=== PATIENT | female | born 1990 | race Asian ===

== ENCOUNTER 2016-08-19 15:39 | Day surgery (SDC) | payer OTHER ==
[~2016-08-19 15:39] MED LIST: LACTATED RINGERS 1,000 ML IV ONE
[2016-08-19] MEDS ORDERED: SCOPOLAMINE PATCH TOP STA (20:03)
[2016-08-19] MEDS ORDERED: GLYCOPYRROLATE 1 MG/5 ML VIAL IVP ONE (21:00)
[2016-08-19] MEDS ORDERED: NEOSTIGMINE 1 MG/1 ML 10 ML MDV IVP ONE (21:00)
[2016-08-19] MEDS ORDERED: fentaNYL 250 MCG/5 ML VIAL IVP ONE (21:00)
[2016-08-19] MEDS ORDERED: ceFAZolin 1 GM VIAL IV ONE (21:00)
[2016-08-19] MEDS ORDERED: BUPIVACAINE 0.25%-EPI 1:200000 PF 30 ML VIAL SUBQ ONE (21:00)
[2016-08-19] MEDS ORDERED: PROPOFOL 200 MG/20 ML VIAL IVP ONE (21:00)
[2016-08-19] MEDS ORDERED: ROCURONIUM 50 MG/5 ML VIAL IVP ONE (21:00)
[2016-08-19] MEDS ORDERED: ONDANSETRON 4 MG/2 ML VIAL IVP ONE (21:00)
[2016-08-19] MEDS ORDERED: SUCCINYLCHOLINE 200 MG/10 ML VIAL IVP ONE (21:00)
[2016-08-19] MEDS ORDERED: LIDOCAINE-MPF 2% 5 ML VIAL IM ONE (21:00)
[2016-08-19] MEDS ORDERED: DEXAMETHASONE 4 MG/ML VIAL IVP ONE (21:00)
[2016-08-19] MEDS ORDERED: MIDAZOLAM 2 MG/2 ML VIAL IVP ONE (21:00)
[2016-08-19] MEDS ORDERED: ACETAMINOPHEN 1,000 MG/100 ML VIAL IV ONE (21:00)
[2016-08-19] MEDS ORDERED: KETOROLAC 30 MG/ML VIAL IVP ONE (21:00)
[2016-08-19] MEDS ORDERED: LACTATED RINGERS 1,000 ML IV ONE (21:14)
[2016-08-19] MEDS ORDERED: MEPERIDINE 50 MG/ML SYRINGE ONE (21:53)
[2016-08-19] MEDS ORDERED: oxyCODONE/ACET 5/325 Prepack 4 PO ONE (22:16)
[2016-08-19] MEDS ORDERED: oxyCODONE/ACET 5/325 Prepack 4 PO STA (22:17)
== END 2016-08-19 19:31 | disposition home or self-care (01) ==
PROC: 0UB54ZZ Excision of Right Fallopian Tube, Percutaneous Endoscopic Approach (ICD-10-PCS; 2016-08-19)
PROC: 10T24ZZ Resection of Products of Conception, Ectopic, Percutaneous Endoscopic Approach (ICD-10-PCS; principal; 2016-08-19 20:13)
DX: O00.10 Tubal pregnancy without intrauterine pregnancy (principal); K66.1 Hemoperitoneum
CPT/HCPCS: 36415; 59151; 76801; 76817; 80053; 81003; 81025; 83690; 84702; 85025; 86850; 86900; 86901; 99283; 99285; J0131; J3010; J3490; J7120

== ENCOUNTER 2016-08-31 16:29 | Outpatient (CLI) | payer OTHER | END 2016-08-31 16:30 | disposition home or self-care (01) | DX: O20.0 Threatened abortion (principal) ==